=== PATIENT | male | born 1960 | race Caucasian/White ===

== ENCOUNTER 2023-08-13 13:45 | Outpatient (CLI) | payer BC | END 2023-08-13 13:46 | disposition home or self-care (01) | LOC: CSHRAD 13:45 | PROVIDERS: ATTEND Urology | DX: R31.29 Other microscopic hematuria (principal); N40.0 Benign prostatic hyperplasia without lower urinary tract symptoms | CPT/HCPCS: 74178; 82565 ==

== ENCOUNTER 2024-03-05 09:50 | Outpatient (CLI) | payer BC | END 2024-03-05 09:51 | disposition home or self-care (01) | LOC: CSHRAD 09:50 | PROVIDERS: ATTEND Internal Medicine | DX: J40 Bronchitis, not specified as acute or chronic (principal); R91.8 Other nonspecific abnormal finding of lung field | CPT/HCPCS: 71046 ==